=== PATIENT | male | born 1990 | race Caucasian/White ===

== ENCOUNTER 2018-05-31 16:55 | Emergency (ER) | payer SELFPAY ==
[2018-05-31 17:05] VITALS: BP 125/76
--- NOTE | 2018-05-31 17:33 | UC ---
Throat Pain/Nasal Patel HPI - HPI Summary HPI Summary: 27 yo male presents with white spots on his tongue that are mildly painful. He first noticed this 3 days ago and seems to be spreading as a white coat along his tongue. He recently got over a "cold" and "sore throat" - was not treated for this or evaluated. He is eating and drinking well, but says it is uncomfortable. Denies fever, chills, cough, sore throat, sinus symptoms. - History of Current Complaint Chief Complaint: [place] Stated Complaint: SPOTS ON TONGUE Time Seen by Provider: 05/31/18 17:33 Onset/Duration: Gradual Onset Severity: Mild Pain Intensity: 4 Pain Scale Used: 0-10 Numeric - Allergies/Home Medications Allergies/Adverse Reactions: Allergies Allergy/AdvReac Type Severity Reaction Status Date / Time No Known Allergies Allergy Verified 05/31/18 17:06 PMH/Surg Hx/FS Hx/Imm Hx - Additional Past Medical History Additional PMH: None - Surgical History Surgical History: None Surgery Procedure, Year, and Place: denies - Family History Known Family History: Positive: None - Social History Occupation: Employed Full-time Lives: With Family Alcohol Use: Weekly Substance Use Type: None Smoking Status (MU): Never Smoked Tobacco Review of Systems All Other Systems Reviewed And Are Negative: Yes Constitutional: Positive: Negative Skin: Positive: Negative Eyes: Positive: Negative ENT: Positive: Other - tongue coating Respiratory: Positive: Negative Cardiovascular: Positive: Negative Neurovascular: Positive: Negative Neurological: Positive: Negative Psychological: Positive: Negative Physical Exam - Summary Physical Exam Summary: GENERAL: NAD. WDWN. No pain distress. SKIN: No rashes, sores, lesions, or open wounds. HEENT: Head: AT/NC Eyes: EOM intact. Conjunctiva clear without inflammation or discharge. Ears: Hearing grossly normal. TMs intact, no bulging, erythema, or edema. Nose: Nasal mucosa pink and moist. NTTP maxillary and frontal sinus. Throat: Tongue with scattered 2mm blisters and mild white coating. Posterior oropharynx without exudates, erythema, or tonsillar enlargement. Uvula midline. NECK: Supple. Nontender. No lymphadenopathy. CHEST: CTAB. No r/r/w. No accessory muscle use. Breathing comfortably and in no distress. CV: RRR. Without m/r/g. Pulses intact. Cap refill <2seconds NEURO: Alert. PSYCH: Age appropriate behavior. Triage Information Reviewed: Yes Vital Signs: Initial Vital Signs Temp 99.3 F 05/31/18 17:01 Pulse 94 05/31/18 17:01 Resp 18 05/31/18 17:01 BP 125/76 05/31/18 17:01 Pulse Ox 99 05/31/18 17:01 Vital Signs Reviewed: Yes Throat Pain/Nasal Course/Dx - Course Course Of Treatment: Thrush. Unfortunately, the local area is out of nystatin swish and swallow - therefore will start him with magic mouthwash and clotrimazole troches. - Differential Dx/Diagnosis Provider Diagnosis: Thrush Discharge - Sign-Out/Discharge Documenting (check all that apply): Patient Departure All imaging exams completed and their final reports reviewed: No Studies - Discharge Plan Condition: Stable Disposition: HOME Prescriptions: Clotrimazole YAA* [Mycelex Yaa*] 10 mg MT SEE INSTRUCTIONS #35 yaa Clotrimazole YAA* [Mycelex Yaa*] 10 mg MT SEE INSTRUCTIONS #35 yaa Magic M W2 Seema/Maal/Nyst/Lido* 10 ml SWISH SPIT QID #300 ml Magic Mouth Was-SEEMA/MAAL/LIDO* 5 ml SWISH SPIT QID #150 ml Magic Mouth Was-SEEMA/MAAL/LIDO* 5 ml SWISH SPIT QID #150 ml Patient Education Materials: Oral Candidiasis (ED) Referrals: No Primary Care Phys,NOPCP [Primary Care Provider] - Additional Instructions: If you develop a fever, shortness of breath, chest pain, new or worsening symptoms - please call your PCP or go to the ED. - Billing Disposition and Condition Condition: STABLE Disposition: Home
== END 2018-05-31 17:48 | disposition home or self-care (01) ==
LOC: UCEAST 16:55
DX: B37.0 Candidal stomatitis (principal)
CPT/HCPCS: 99202; G0463